=== PATIENT | female | born 1960 | race Caucasian/White ===

== ENCOUNTER 2017-06-26 15:03 | Inpatient (IN) | payer OTHER ==
[~2017-06-26] VITALS: Ht 154.9 cm; Wt 92.5 kg
[~2017-06-26 15:03] MED LIST: Advil200 M1 PO; Curcumin1 GM PO; MAGNESIUM PO
[2017-06-27] MEDS ORDERED: Cranberry300 MG PO (07:27)
[2017-06-28 04:38] LABS: BASOPHILS ABSOLUTE AUTO 0.02 K/mm3 (0.00-0.23); BASOPHILS PERCENT AUTO 0 % (0-2); EOSINOPHILS PERCENT AUTO 0 % (0-6); Hematocrit 37.9 % (33.0-51.0); Hemoglobin 12.5 g/dL (11.5-16.0); IMMATURE GRAN ABSOLUTE AUTO 0.18 K/mm3 (0.00-0.10); IMMATURE GRAN PERCENT AUTO 1 % (0-1); LYMPHOCYTES ABSOLUTE AUTO 1.31 K/mm3 (0.84-5.20); LYMPHOCYTES PERCENT AUTO 7 % (21-46); MONOCYTES ABSOLUTE AUTO 1.13 K/mm3 (0.16-1.47); MONOCYTES PERCENT AUTO 6 % (4-13); Mean Corpuscular HGB 28.8 pg (26.0-34.0); Mean Corpuscular Volume 87 fL (80-100); NEUTROPHILS ABSOLUTE AUTO 15.47 K/mm3 (1.96-9.15); NEUTROPHILS PERCENT AUTO 86 % (41-73); Platelet Count 173 K/mm3 (150-400); RDW Coefficient Variation 12.6 % (11.7-14.2); RDW Standard Deviation 40.2 fL (35.1-46.3); Red Blood Cell Count 4.34 M/mm3 (3.80-5.20); White Blood Cell Count 18.11 K/mm3 (4.00-11.30)
[2017-06-28 04:52] LABS: Anion Gap 7 mmol/L (6-16); Blood Urea Nitrogen 13 mg/dL (8-24); Bun/Creatinine Ratio 25.8 (12.0-20.0); CO2, Blood 25 mmol/L (21-32); Calcium, Blood 8.4 mg/dL (8.5-10.1); Chloride, Blood 108 mmol/L (98-108); Glomerular Filtration Rate >60 (60-); Glucose, Blood 135 mg/dL (70-99); Potassium, Blood 5.1 mmol/L (3.5-5.5); Sodium, Blood 140 mmol/L (136-145)
[2017-06-28] MEDS ORDERED: ASPI325 PO (09:17)
[2017-06-28] MEDS ORDERED: Percocet 5-3251 EACH PO (09:18)
== END 2017-06-28 13:00 | disposition home or self-care (01) | DRG 470 ==
LOC: SURS 06-27 06:05 → PRE IP 06-27 07:30 → SURS 06-27 11:18
PROVIDERS: Orthopaedic Surgery
PROC: BQ14ZZZ Fluoroscopy of Left Femur (ICD-10-PCS; 2017-06-27)
PROC: 0SRB04Z Replacement of Left Hip Joint with Ceramic on Polyethylene Synthetic Substitute, Open Approach (ICD-10-PCS; principal; 2017-06-27 07:30)
DX: M87.052 Idiopathic aseptic necrosis of left femur (principal); Z79.1 Long term (current) use of non-steroidal anti-inflammatories (NSAID); Z79.899 Other long term (current) drug therapy; Z88.1 Allergy status to other antibiotic agents; Z88.0 Allergy status to penicillin
CPT/HCPCS: 36415; 72170; 80048; 85025; 86850; 86900; 86901; 88304; 88311; 97110; 97116; 97161; 97530; C1776; G8978; G8979; G8980; J0171; J0735; J1100; J1885; J2250; J2405; J2795; J3370; J7120

== ENCOUNTER → 2023-12-30 | Outpatient (CLI) | payer SELFPAY ==
[~2023-12-30] MED LIST changes: +ASPI325 PO; +Cranberry300 MG PO; +Percocet 5-3251 EACH PO
== END | disposition home or self-care (01) ==
LOC: LAB 18:31 → LAB SHORT 18:31
DX: R30.0 Dysuria (principal)
CPT/HCPCS: 87077; 87086; 87186

== ENCOUNTER 2024-08-23 11:58 | Day surgery (SDC) | payer OTHER ==
[~2024-08-23] VITALS: Ht 152.4 cm; Wt 90.8 kg
[~2024-08-23 11:58] MED LIST changes: +Lactated Ringer's 1,000 ML IV ONE
[2024-08-23] MEDS ORDERED: FentaNYL Citrate 50 MCG/ML 2 ML Injection ONE ×2 (12:02→12:45)
[2024-08-23] MEDS ORDERED: Midazolam HCl 1MG / ML 2ML Vial ONE (12:02)
[2024-08-23] MEDS ORDERED: Lactated Ringer's 1,000 ML IV ONE (12:12)
[2024-08-23] MEDS ORDERED: CeFAZolin Sodium 2,000 MG VIAL ONE (12:23)
[2024-08-23] MEDS ORDERED: CETI5 (12:26)
[2024-08-23] MEDS ORDERED: Dexamethasone Sod Phos 10 MG/ML 1ML VIAL ONE (12:45)
[2024-08-23] MEDS ORDERED: propofoL 20 ML IV ONE (12:45)
[2024-08-23] MEDS ORDERED: Ondansetron HCl 2 MG / ML 2ML Vial ONE (12:45)
[2024-08-23] MEDS ORDERED: Bupivacaine 0.5% W/EPI 1:200000 SDV 30 ML Vial ONE (13:49)
[2024-08-23] MEDS ORDERED: HYDROcodone 5-APAP 325 TAB ONE (15:07)
--- NOTE | 2024-08-23 15:14 | NUR ---
08/23/24 1514 Breana Avelar DAUGHTER AND GRANDSON AT BEDSIDE
[2024-08-23 15:37] VITALS: BP 145/76
== END 2024-08-23 15:50 | disposition home or self-care (01) ==
LOC: ORSCSDS 11:58
PROVIDERS: Podiatrist Foot & Ankle Surgery
PROC: 0SGP04Z Fusion of Right Toe Phalangeal Joint with Internal Fixation Device, Open Approach (ICD-10-PCS; principal; 2024-08-23 13:30)
PROC: 0SNM0ZZ Release Right Metatarsal-Phalangeal Joint, Open Approach (ICD-10-PCS; principal; 2024-08-23 13:30)
DX: M20.41 Other hammer toe(s) (acquired), right foot (principal); M77.41 Metatarsalgia, right foot; E66.9 Obesity, unspecified; Z68.39 Body mass index [BMI] 39.0-39.9, adult
CPT/HCPCS: A9270; C1776; J0690; J1100; J2250; J2405; J2704; J3010; J7120